=== PATIENT | female | born 1990 | race Caucasian/White ===

== ENCOUNTER 2017-10-03 08:37 | Emergency (ER) | payer SELFPAY ==
[~2017-10-03] VITALS: Ht 152.4 cm; Wt 104.3 kg
[~2017-10-03 08:37] MED LIST: ETON68IM IL; IBUP600T22 PO; IBUP800T37 PO; IMPLANON; LOR5/325 PO; MELA1TAB15 PO; VENL100T22 PO
[2017-10-03] MEDS ORDERED: ADENOSINE IV SOLN 3 MG/ML SYR ONE (08:49)
[2017-10-03] MEDS ORDERED: ADENOSINE IV SOLN 3 MG/ML SYR IVP ONE (08:50)
[2017-10-03] MEDS ORDERED: LEVO50TA86 PO (09:04)
[2017-10-03] MEDS ORDERED: VENL75CA58 PO (09:04)
--- NOTE | 2017-10-03 09:04 | ER Report ---
History and Physical Time Seen By MD: 08:40 HPI/ROS CHIEF COMPLAINT: Tachycardia HISTORY OF PRESENT ILLNESS: Patient is a 27-year-old female who presents with her 1st ever episode of tachycardia. She does report history of anxiety disorder but states this is different. She states that around 8:15 she felt a racing pounding sensation in her chest and found that her heart rate was beating quite quickly. She reports mild chest discomfort and some dyspnea. No prior history of similar episodes. REVIEW OF SYSTEMS: Constitutional: No fever, no chills. Eyes: No discharge. ENT: No sore throat. Cardiovascular: Chest pain, palpitations Respiratory: No cough, dyspnea Gastrointestinal: No abdominal pain, no vomiting. Genitourinary: No hematuria. Musculoskeletal: No back pain. Skin: No rashes. Neurological: No headache. Anxious Allergies: Coded Allergies: No Known Drug Allergies (Unverified , 10/03/17) Home Meds Reported Medications Levothyroxine Sodium (LEVOTHYROXINE SODIUM) 50 Mcg Tablet, 50 MCG PO QDAY, TAB 10/03/17 Venlafaxine Hcl (EFFEXOR XR) 75 Mg Cap.er.24h, 75 MG PO QDAY 10/03/17 Etonogestrel (NEXPLANON) 68 Mg Implant, 68 MG [place] DIRECTED, IMPLANT 04/26/15 Discontinued Scripts Ibuprofen (IBUPROFEN) 800 Mg Tablet, 1 TAB PO Q8H, #30 Prov:KIM JENKINS DO 08/19/16 Ibuprofen (IBUPROFEN) 600 Mg Tablet, 1 TAB PO Q6H for PAIN, #30 TAB Prov:CORRINE GUILLORY MD 03/02/16 Past Medical/Surgical History No significant past medical history Hx Smoking: No Smoking Status: Never Smoker Hx Substance Use Disorder: No Hx Alcohol Use: Yes (occ) Constitutional Vital Sign - Last 24 Hours 10/03/17 10/03/17 10/03/17 10/03/17 08:40 08:45 08:52 09:00 Temp 97.7 Pulse 192 201 83 Resp 30 21 14 B/P (MAP) 111/23 123/83 (96) Pulse Ox 90 100 97 O2 Delivery Room Air 10/03/17 10/03/17 10/03/17 10/03/17 09:05 09:15 09:30 09:35 Pulse 99 105 107 Resp 21 22 15 B/P (MAP) 116/81 (93) Pulse Ox 93 94 92 10/03/17 10/03/17 10/03/17 10/03/17 09:50 09:55 10:00 10:10 Pulse 103 101 99 Resp 14 13 14 B/P (MAP) 106/95 (99) Pulse Ox 91 95 92 10/03/17 10:25 Pulse 100 Resp 32 Pulse Ox 92 Intake and Output 10/03/17 10/03/17 10/04/17 15:00 23:00 07:00 Intake Total 200 ml Balance 200 ml Physical Exam General/Constitutional: Patient is awake, alert, nontoxic and in no acute respiratory distress. Head: Normocephalic and atraumatic. Eyes: Conjunctival clear, Pupils are equal and reactive to light. Extraocular muscles are intact and symmetrical. Sclera are clear and anicteric. Ears:External canals are clear. Tympanic membranes are clear with normal landmarks and light reflex. Nares: No rhinorrhea or bleeding. Turbinates are pink and moist. Oropharyngeal: Mucous membranes are moist. There is no pharyngeal erythema or exudate. There are no palatal petechiae. Uvula is midline and symmetrical. Neck: Supple, no adenopathy. Cardiovascular: Heart is regular but extremely tachycardic with rate of 200. Pulmonary: Lungs are clear to auscultation bilaterally. There are no wheezes, rales, or rhonchi. Chest rise is symmetrical Abdomen: Soft, nontender, no guarding or peritoneal signs. Extremities: No gross deformities, No peripheral cyanosis. Able to move all 4 extremities. Neuro: Alert and oriented X3, Skin: No rashes, skin is warm dry and well perfused. Medical Decision Making Data Points Result Diagram: 10/03/17 0842 Laboratory Hematology Test 10/03/17 00:00 10/03/17 08:42 Urine HCG, Qualitative Negative (NEGATIVE) Sodium Level 137 mmol/L (137-145) Potassium Level 3.9 mmol/L (3.5-5.0) Chloride Level 103 mmol/L (98-107) Carbon Dioxide Level 23 mmol/L (22-31) Blood Urea Nitrogen 14 mg/dl (7-18) Creatinine 0.90 mg/dl (0.52-1.04) Glomerular Filtration Rate Calc > 60.0 Random Glucose 137 mg/dl (75-110) Calcium Level 9.2 mg/dl (8.4-10.2) Magnesium Level 1.6 mg/dl (1.7-2.2) Chemistry Test 10/03/17 00:00 10/03/17 08:42 Urine HCG, Qualitative Negative (NEGATIVE) Glomerular Filtration Rate Calc > 60.0 Calcium Level 9.2 mg/dl (8.4-10.2) Magnesium Level 1.6 mg/dl (1.7-2.2) Urinalysis Test 10/03/17 00:00 Urine HCG, Qualitative Negative (NEGATIVE) EKG/Imaging EKG Interpretation EKG shows supraventricular tachycardia. Monitor Interpretation: Supraventricular Tach ED Course/Re-evaluation ED Course 10/03/2017 9:02:25 am intravenous line started and labs for electrolytes and magnesium were drawn. EKG showing supraventricular tachycardia. Plan at this time will be 12 mg of adenosine. 10/03/2017 9:02:45 am patient given 12 mg of adenosine with return to sinus rhythm at this point. Repeat EKG showing normal sinus rhythm. Decision to Disposition Date: Oct 03, 2017 Decision to Disposition Time: 10:04 Depart Departure Latest Vital Signs Vital Signs Date Time Temp Pulse Resp B/P (MAP) Pulse Ox O2 Delivery O2 Flow Rate FiO2 10/03/17 10:25 100 32 92 10/03/17 10:00 106/95 (99) 10/03/17 08:40 97.7 Room Air Impression: Primary Impression: Supraventricular tachycardia Condition: Improved Disposition: HOME OR SELF-CARE Referrals: MISHA MANDEL DO Please make a follow-up appointment in the next 2-4 weeks to establish a primary care provider contact and to monitor your thyroid medication. I will also send a Holter monitor results to him as well Departure Forms: ER Transition Record, Medications Reconciliation, Off Work/ School Form, School or Work Release?: Work Number of days to be released: 1 Patient Portal Information Patient Instructions: Supraventricular Tachycardia (DC) NATHAN CERVANTES MD Oct 03, 2017 09:03
[2017-10-03] MEDS ORDERED: NS(*) 0.9% 1000 ML BAG 1,000 ML IV ONE (09:05)
[2017-10-03 10:00] VITALS: BP 106/95
--- NOTE | 2017-10-03 16:48 | EKG ---
[place] [facility] [place] NAME: YOGESH CISSE : [id number] MR: [id number] V: [id number] EXAM DATE: ORDERING PHYSICIAN: NATHAN CERVANTES TECHNOLOGIST: Test Reason : Blood Pressure : / mmHG Vent. Rate : 100 BPM Atrial Rate : 100 BPM P-R Int : 136 ms QRS Dur : 098 ms QT Int : 332 ms P-R-T Axes : 053 -76 032 degrees QTc Int : 428 ms Sinus rhythm Left axis deviation Incomplete right bundle branch block Abnormal ECG Confirmed by REANNA GRUROLA ([id number]) on 10/03/2017 4:58:07 PM Referred By: Confirmed By:REANNA GURROLA
--- NOTE | 2017-10-03 16:48 | EKG ---
FACILITY: [facility] - [place] PATIENT NAME: YOGESH CISSE : [id number] MR: [id number] V: [id number] EXAM DATE: ORDERING PHYSICIAN: NATHAN CERVANTES TECHNOLOGIST: Test Reason : Blood Pressure : / mmHG Vent. Rate : 201 BPM Atrial Rate : 025 BPM P-R Int : 000 ms QRS Dur : 094 ms QT Int : 252 ms P-R-T Axes : 000 210 054 degrees QTc Int : 461 ms Supraventricular tachycardia Incomplete right bundle branch block Abnormal ECG No previous ECGs available Confirmed by REANNA GURROLA ([id number]) on 10/03/2017 4:57:25 PM Referred By: Confirmed By:REANNA GURROLA
== END 2017-10-03 10:50 | disposition home or self-care (01) ==
LOC: ER 08:37
DX: I47.1 Supraventricular tachycardia (principal)
CPT/HCPCS: 81025; 83735; 84443; 93005; 93225; 96374; 99283; J0153; J7030; 82310; 82374; 82435; 82565; 82947; 84132; 84295; 84520; 93226

== ENCOUNTER → 2017-10-30 | Outpatient (CLI) | payer SELFPAY ==
[~2017-10-30] MED LIST changes: +LEVO50TA86 PO; +VENL75CA58 PO
--- NOTE | 2017-10-30 15:18 | RADIOLOGY IMAGING REPORT ---
FACILITY: [facility] PATIENT NAME: Kelsi Shoemaker : 1990 MR: [id number] V: [id number] EXAM DATE: ORDERING PHYSICIAN: SHAILESH POND TECHNOLOGIST: Location[place] [facility] [place] Patient: Kelsi Shoemaker : 1990 Visit/Account:[id number] Date of Sevice: 10/30/2017 Technique: ANKLE 3 VIEW MIN LEFT HISTORY: Fall Comparison studies: None FINDINGS: There is no acute fracture. The ankle mortise is maintained. Incidentally noted is a small calcaneal spur. Soft tissue swelling surrounds the ankle. IMPRESSION: 1. No acute osseous process. Report Dictated By: Zac Dial DO at 10/30/2017 3:12 PM Report E-Signed By: Zac Dial DO at 10/30/2017 3:13 PM WSN:[id number]
== END ==
LOC: RAD 13:59
PROVIDERS: ATTEND Family Medicine
DX: M25.472 Effusion, left ankle (principal)

== ENCOUNTER → 2017-11-07 | Outpatient (CLI) | payer SELFPAY ==
--- NOTE | 2017-11-08 01:28 | RADIOLOGY IMAGING REPORT ---
FACILITY: [facility] - [place] PATIENT NAME: Kelsi Shoemaker : 1990 MR: [id number] V: [id number] EXAM DATE: ORDERING PHYSICIAN: BRYAN DAVIDSON TECHNOLOGIST: Location: [facility] Patient: Kelsi Shoemaker : 1990 Visit/Account:[id number] Date of Sevice: 11/07/2017 LEFT ANKLE: Indication: Injury. Technique: 3 views were obtained. Comparison: 10/30/2017 Findings: There is no evidence of fracture, subluxation, or other acute deformity. There is uniform m ineralization of the bony structures. There is moderate soft tissue swelling. IMPRESSION: Moderate soft tissue swelling. No evidence of fracture. Report Dictated By: Twan Concepcion MD at 11/08/2017 1:23 AM Report E-Signed By: Twan Concepcion MD at 11/08/2017 1:24 AM WSN:[id number]
== END ==
LOC: RAD 17:00
PROVIDERS: ATTEND Nurse Practitioner Family
DX: M25.472 Effusion, left ankle (principal)